=== PATIENT | female | born 1995 | race Caucasian/White ===

== ENCOUNTER 2017-11-11 16:46 | Emergency (ER) | payer OTHER ==
[2017-11-11] MEDS ORDERED: NS 0.9% 1000 ML* 1,000 ML IV ONE (19:44)
[2017-11-11] MEDS ORDERED: diPHENhydraMINE IV* 50 MG/ML 1 ml VIAL (BENADRYL) SLOW PUSH ONE (19:46)
[2017-11-11] MEDS ORDERED: Metoclopramide IV* 5 MG/ML 2 ML VIAL IV SLOW PU ONE (19:46)
[2017-11-11] MEDS ORDERED: Ketorolac INJ* 30 MG/ML 1 ML VIAL IV PUSH ONE (19:47)
--- NOTE | 2017-11-11 20:15 | RAD ---
INDICATION: Headaches COMPARISON: None TECHNIQUE: Noncontrast axial source images were acquired from the skull base to the vertex. FINDINGS: Ventricles/sulci: The ventricles and cisterns are normal in size and configuration for age. Brain parenchyma: There is no focal parenchymal finding, evidence of intracranial mass, or intracranial mass effect. Intracranial hemorrhage:None. Extra-axial spaces: There are no abnormal extra axial fluid collections or evidence of extra-axial mass. Calvarium: There is no calvarial fracture or other calvarial abnormality. Scalp: There is no evidence of scalp or extracalvarial soft tissue abnormality. Paranasal sinuses/mastoid: The paranasal sinuses and mastoid air cells are clear. Other: The dural sinuses are prominent but appear normally opacified. There are prominent vascular grooves in the calvarium. This is likely a normal variant. IMPRESSION: No acute intracranial findings (see above)
[2017-11-11 20:26] LABS: Hematocrit 40 % (35-47); Hemoglobin 13.3 g/dl (12.0-16.0); Mean Corpuscular Hemoglobin 26 pg (27-31); Mean Corpuscular Volume 77 fL (80-97); Red Blood Count 5.15 10^6/ul (4.0-5.4); White Blood Count 5.6 10^3/ul (3.5-10.8)
[2017-11-11 20:27] LABS: ABS Basophils 0 10^3/ul (0-0.2); ABS Eosinophils 0 10^3/ul (0-0.6); ABS Monocytes 0.4 10^3/ul (0-0.8); ABS Neutrophils 3.2 10^3/ul (1.5-7.7); ABS Nucleated RBC 0 10^3/ul; Eosinophil % 0.3 % (0-6); Lymphocyte % 35.3 % (25-47); Mean Corpuscular HGB Conc 33 g/dl (31-36); Mean Platelet Volume 8 um3 (7.4-10.4); Nucleated Red Blood Cells % 0.1; Platelet Count 235 10^3/ul (150-450); Red Cell Distribution Width 14 % (10.5-15)
[2017-11-11 20:38] LABS: EGFR Non-African American 92.8 (>60)
[2017-11-11 21:27] VITALS: BP 114/72
--- NOTE | 2017-11-11 21:29 | ED ---
Lucio Dutta Gabriel, scribed for Angeles Whitt MD on 11/11/17 at 1940 . Headache - HPI Summary HPI Summary: This patient is a 22 year old F presenting to [facility] accompanied by her partner with a chief complaint of migraine headaches since 11-01-18. The patient rates the pain 3/10 in severity. Patient reports photophobia, nausea, visual disturbances described as lights, and pain behind her eyes. Hx of migraines but currently has new symptoms and it has lasted longer. Additionally she has a Dural AVM with her last FMRI being two years ago, it was found that it was not progressing so she hasnt had one since. LNMP was two and half weeks ago. She is on BC. - History Of Current Complaint Chief Complaint: EDHeadache Stated Complaint: HEADACHE/NAUSEA Time Seen by Provider: 11/11/17 19:20 Hx Obtained From: Patient Onset/Duration: Still Present Initially Headache Was: Moderate Currently Pain Is: Mild Timing: Constant Character: Migraine Associated Signs And Symptoms: Other (Noted In Comments) - photophobia, nausea, visual disturbances described as lights, and pain behind her eyes. - Allergies/Home Medications Allergies/Adverse Reactions: Allergies Allergy/AdvReac Type Severity Reaction Status Date / Time No Known Allergies Allergy Verified 11/11/17 20:13 PMH/Surg Hx/FS Hx/Imm Hx Neurological History: Reports: Other Neuro Impairments/Disorders - Dural AVM Psychiatric History: Reports: Hx Anxiety, Hx Depression Infectious Disease History: No Infectious Disease History: Denies: Traveled Outside the [place] in Last 30 Days - Family History Known Family History: Positive: Diabetes - mother type 2 Negative: Cardiac Disease, Hypertension, Renal Disease, Respiratory Disease, Seizure Disorder, Blood Disorder - Social History Lives: With Family Alcohol Use: Rare Substance Use Type: Reports: None Smoking Status (MU): Never Smoked Tobacco Review of Systems Positive: Photophobia, Blurred Vision - lights , Other - pain behind eyes Positive: Nausea Positive: Headache All Other Systems Reviewed And Are Negative: Yes Physical Exam - Summary Physical Exam Summary: VITAL SIGNS: Reviewed. GENERAL: Patient is a well-developed and nourished female who is lying comfortable in the stretcher. Patient is not in any acute respiratory distress. HEAD AND FACE: No signs of trauma. No ecchymosis, hematomas or skull depressions. No sinus tenderness. EYES: PERRLA, EOMI x 2, No injected conjunctiva, no nystagmus. EARS: Hearing grossly intact. Ear canals and tympanic membranes are within normal limits. MOUTH: Oropharynx within normal limits. NECK: Supple, trachea is midline, no adenopathy, no JVD, no carotid bruit, no c- spine tenderness, neck with full ROM. CHEST: Symmetric, no tenderness at palpation LUNGS: Clear to auscultation bilaterally. No wheezing or crackles. CVS: Regular rate and rhythm, S1 and S2 present, no murmurs or gallops appreciated. ABDOMEN: Soft, non-tender. No signs of distention. No rebound no guarding, and no masses palpated. Bowel sounds are normal. EXTREMITIES: FROM in all major joints, no edema, no cyanosis or clubbing. NEURO: Alert and oriented x 3. No acute neurological deficits. Speech is normal and follows commands. SKIN: Dry and warm Triage Information Reviewed: Yes Vital Signs On Initial Exam: Initial Vitals Temp Pulse Resp BP Pulse Ox 98.6 F 79 16 154/95 100 11/11/17 17:03 11/11/17 17:03 11/11/17 17:03 11/11/17 17:03 11/11/17 17:03 Vital Signs Reviewed: Yes Diagnostics - Vital Signs Vital Signs Temp Pulse Resp BP Pulse Ox 11/11/17 17:03 98.6 F 79 16 154/95 100 - Laboratory Result Diagrams: 11/11/17 20:11 11/11/17 20:11 Lab Statement: Any lab studies that have been ordered have been reviewed, and results considered in the medical decision making process. - CT CT brain CT Interpretation Completed By: Radiologist - No acute intracranial findings ( see above) ED physician has reviewed this radiology report. Re-Evaluation - Re-Evaluation First Eval Re-Evaluation Time: 20:57 Change: Improved Comment: Pt's pain has improved. Headache Course/Dx - Course Assessment/Plan: This patient is a 22 year old F presenting to [facility] accompanied by her partner with a chief complaint of migraine headaches since . The patient rates the pain 3/10 in severity. Patient reports photophobia , nausea, visual disturbances described as lights, and pain behind her eyes. Hx of migraines but currently has new symptoms and it has lasted longer. Additionally she has a Dural AVM with her last FMRI being two years ago, it was found that it was not progressing so she hasnt had one since. LNMP was two and half weeks ago. She is on BC. CT Brain reveals, per radiologist, No acute intracranial findings (see above). Test results with no significant abnormalities. In the ED course the patient was given Reglan, IV fluids, toradol and Benadryl. Pt feels better after these treatments. Dx TUTTLE. Patient will be discharged and follow up from physician referral center. The patient is agreeable with this plan. - Diagnoses Provider Diagnoses: Headache Discharge - Discharge Plan Condition: Stable Disposition: HOME Patient Education Materials: Migraine Headache (ED) Referrals: [facility] [facility] [place]Outside] - 4 Days Additional Instructions: RETURN TO EMERGENCY DEPARTMENT FOR ANY NEW OR WORSENING SYMPTOMS The documentation as recorded by the Lucio mares Gabriel accurately reflects the service I personally performed and the decisions made by me, Angeles Whitt MD.
== END 2017-11-11 21:27 | disposition home or self-care (01) ==
LOC: ED 16:46
DX: R51 Headache (principal); H53.149 Visual discomfort, unspecified; R11.0 Nausea
CPT/HCPCS: 36415; 70450; 80053; 84702; 85025; 96374; 96375; 99284; J1200; J1885; J2765

== ENCOUNTER 2019-10-08 08:52 | Emergency (ER) | payer SELFPAY ==
[2019-10-08] MEDS ORDERED: Acetaminophen TAB* 325 MG PO ONE (09:03)
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
[2019-10-08 10:46] VITALS: BP 122/79
== END 2019-10-08 10:45 | disposition home or self-care (01) ==
LOC: ED 08:52
DX: S70.01XA Contusion of right hip, initial encounter (principal); S00.81XA Abrasion of other part of head, initial encounter; V47.5XXA Car driver injured in collision with fixed or stationary object in traffic accident, initial encounter; Y92.410 Unspecified street and highway as the place of occurrence of the external cause; F41.9 Anxiety disorder, unspecified; F32.9 Major depressive disorder, single episode, unspecified; Z79.899 Other long term (current) drug therapy
CPT/HCPCS: 99282; A9270-GY